=== PATIENT | male | born 1980 | race Caucasian/White ===

== ENCOUNTER → 2017-01-07 | Outpatient (CLI) | payer BC ==
[2016-03-20 16:31] VITALS: BP 151/95
[~2017-01-07] MED LIST: AUGMENTIN 875-1 EAC1 PO; KLONOPIN 1MG1 MG PO; NORCO 325 MG-51 TA1 PO; NORCO 325 MG-51 TAB PO; PANTOPRAZOLE SO20 MG PO; PROZAC10 M2 PO
== END ==
LOC: RAD 16:07
DX: R59.0 Localized enlarged lymph nodes (principal)

== ENCOUNTER → 2017-03-25 | Outpatient (CLI) | payer BC ==
[~2017-03-25] VITALS: Ht 195.6 cm; Wt 95.5 kg
[2017-03-25 12:34] VITALS: BP 146/95
[2017-03-25 14:25] VITALS: BP 129/67
[2017-03-25 17:53] VITALS: BP 135/85
== END ==
LOC: AMSURD 12:08
DX: R19.7 Diarrhea, unspecified (principal); R53.81 Other malaise
CPT/HCPCS: J7120

== ENCOUNTER → 2017-03-26 | Outpatient (CLI) | payer SELFPAY ==
[2017-03-25 17:53] VITALS: BP 135/85
== END ==
LOC: LAB 09:02
DX: R19.7 Diarrhea, unspecified (principal); R53.81 Other malaise

== ENCOUNTER → 2017-07-16 | Outpatient (CLI) | payer SELFPAY ==
[2017-03-25 17:53] VITALS: BP 135/85
[2017-07-16 08:51] LABS: STREP SCREEN NEGATIVE (NEGATIVE)
== END ==
LOC: LAB 08:16 → RAD 08:16
PROVIDERS: Nurse Practitioner Family
DX: J02.8 Acute pharyngitis due to other specified organisms (principal); R68.89 Other general symptoms and signs

== ENCOUNTER → 2017-07-24 | Outpatient (CLI) | payer SELFPAY ==
[2017-03-25 17:53] VITALS: BP 135/85
== END ==
LOC: LAB 16:46
DX: A60.00 Herpesviral infection of urogenital system, unspecified (principal)

== ENCOUNTER 2018-02-22 11:04 | Emergency (ER) | payer BC ==
[~2018-02-22] VITALS: Ht 195.6 cm; Wt 104.5 kg
[2018-02-22] MEDS ORDERED: NORCO 325 MG-51 TA1 PO (11:52)
[2018-02-22 12:08] VITALS: BP 140/99
== END 2018-02-22 12:02 | disposition home or self-care (01) ==
LOC: ED 11:04
DX: M54.16 Radiculopathy, lumbar region (principal); F17.200 Nicotine dependence, unspecified, uncomplicated; Z79.899 Other long term (current) drug therapy
CPT/HCPCS: J1100; J1885

== ENCOUNTER → 2018-04-16 | Outpatient (CLI) | payer BC ==
[~2018-04-16] MED LIST changes: +LEVOFLOXACIN500 M1 PO; +NAPROSYN500 M1 PO
[2018-04-16 09:05] LABS: URINE APPEARANCE CLEAR; URINE BILIRUBIN NEGATIVE (NEGATIVE); URINE BLOOD NEGATIVE (NEGATIVE); URINE COLOR YELLOW; URINE GLUCOSE NEGATIVE (NEGATIVE); URINE KETONE NEGATIVE (NEGATIVE); URINE LEUKOCYTE ESTERASE NEGATIVE (NEGATIVE); URINE NITRATE NEGATIVE (NEGATIVE); URINE PROTEIN(semi-quant) TRACE mg/dL (NEGATIVE); URINE UROBILINOGEN NORMAL (NORMAL); URINE WBC 0-1 /hpf (0-3)
== END ==
LOC: LAB 07:57
PROVIDERS: Internal Medicine
DX: N30.00 Acute cystitis without hematuria (principal)

== ENCOUNTER 2018-04-22 09:47 | Emergency (ER) | payer BC ==
[~2018-04-22] VITALS: Ht 195.6 cm; Wt 108.2 kg
[~2018-04-22 09:47] MED LIST changes: -LEVOFLOXACIN500 M1 PO; -NAPROSYN500 M1 PO
[2018-04-22 10:40] LABS: EOS # 0.2 (0.04-0.40); EOS % 2.9 % (0.0-4.0); HEMATOCRIT 44.6 % (42.0-52.0); HEMOGLOBIN 15.6 g/dL (13.5-18.0); MEAN CELL VOLUME 88 fl (78-100); MEAN CORPUSCULAR HEMOGLOBIN 31 pg (27-31); MEAN CORPUSCULAR HGB CONC 35 g/dL (33-37); MEAN PLATELET VOLUME 9.5 fl (7.4-10.4); MONO # 0.6 (0.20-0.80); NEU # 3.8 (1.40-6.50); PLATELET COUNT 227 K/mm3 (130-400); RED CELL DISTRIBUTION WIDTH 12.8 % (11.5-14.5); WHITE BLOOD COUNT 6.6 K/mm3 (4.8-10.8)
[2018-04-22 10:57] LABS: ALBUMIN 4.4 g/dL (3.5-5.0); CALCIUM 9.6 mg/dL (8.4-10.2); POTASSIUM 4.8 mmol/L (3.6-5.0); TOTAL BILIRUBIN 0.6 mg/dL (0.2-1.3); TOTAL PROTEIN 7.5 g/dL (6.3-8.2)
[2018-04-22 11:38] LABS: D-DIMER 0.14 mg/L FEU (0.15-0.50)
[2018-04-22] MEDS ORDERED: NAPROSYN500 M1 PO (12:29)
[2018-04-22 12:48] VITALS: BP 115/63
== END 2018-04-22 12:30 | disposition home or self-care (01) ==
LOC: ED 09:47
PROVIDERS: Nurse Practitioner Primary Care
DX: I31.9 Disease of pericardium, unspecified (principal); R07.89 Other chest pain; Z79.899 Other long term (current) drug therapy; K21.9 Gastro-esophageal reflux disease without esophagitis; Z82.49 Family history of ischemic heart disease and other diseases of the circulatory system

== ENCOUNTER → 2018-05-18 | Outpatient (CLI) | payer BC ==
[~2018-05-18] VITALS: Ht 195.6 cm; Wt 108.2 kg
[~2018-05-18] MED LIST changes: +LEVOFLOXACIN500 M1 PO; +NAPROSYN500 M1 PO
[2018-05-18 14:57] LABS: EOS # 0.2 (0.04-0.40); HEMATOCRIT 46.9 % (42.0-52.0); HEMOGLOBIN 16.1 g/dL (13.5-18.0); LYMPH# 2.1 (1.50-4.00); MEAN CELL VOLUME 88 fl (78-100); MEAN CORPUSCULAR HEMOGLOBIN 30 pg (27-31); MEAN CORPUSCULAR HGB CONC 34 g/dL (33-37); MEAN PLATELET VOLUME 9.5 fl (7.4-10.4); MONO # 0.6 (0.20-0.80); PLATELET COUNT 244 K/mm3 (130-400); RED BLOOD COUNT 5.31 M/mm3 (4.20-5.60); RED CELL DISTRIBUTION WIDTH 12.6 % (11.5-14.5); WHITE BLOOD COUNT 7.9 K/mm3 (4.8-10.8)
[2018-05-18 15:21] VITALS: BP 120/85
[2018-05-18 15:27] LABS: ALBUMIN 4.5 g/dL (3.5-5.0); CALCIUM 10.1 mg/dL (8.4-10.2); POTASSIUM 4.5 mmol/L (3.6-5.0); TOTAL BILIRUBIN 0.6 mg/dL (0.2-1.3); TOTAL PROTEIN 7.7 g/dL (6.3-8.2)
--- NOTE | 2018-05-18 15:30 | NUR ---
Patient ok to d/c home per Dr. Xie.
[2018-05-18 16:20] LABS: URINE APPEARANCE CLEAR; URINE COLOR YELLOW
[2018-05-18 16:21] LABS: URINE BILIRUBIN NEGATIVE (NEGATIVE); URINE BLOOD NEGATIVE (NEGATIVE); URINE GLUCOSE NEGATIVE (NEGATIVE); URINE KETONE NEGATIVE (NEGATIVE); URINE LEUKOCYTE ESTERASE NEGATIVE (NEGATIVE); URINE NITRATE NEGATIVE (NEGATIVE); URINE PROTEIN(semi-quant) NEGATIVE (NEGATIVE); URINE UROBILINOGEN NORMAL (NORMAL); URINE WBC 0-1 /hpf (0-3)
== END ==
LOC: AMSURD 14:30
PROVIDERS: Internal Medicine
DX: R07.89 Other chest pain (principal)

== ENCOUNTER → 2018-05-29 | Outpatient (CLI) | payer BC ==
[2018-05-18 15:21] VITALS: BP 120/85
== END ==
LOC: RAD 09:34
DX: N20.0 Calculus of kidney (principal)
CPT/HCPCS: Q9967

== ENCOUNTER 2019-08-09 05:20 | Emergency (ER) | payer BC ==
[~2019-08-09] VITALS: Ht 195.6 cm; Wt 95.5 kg
[~2019-08-09 05:20] MED LIST changes: -PANTOPRAZOLE SO20 MG PO; +PROTONIX20 M1 PO
[2019-08-09] MEDS ORDERED: FISH OIL CONCEN1 SG2 PO (05:32)
[2019-08-09 06:32] LABS: HEMATOCRIT 42.6 % (42.0-52.0); HEMOGLOBIN 14.4 g/dL (13.5-18.0); MEAN CELL VOLUME 89 fl (78-100); MEAN CORPUSCULAR HEMOGLOBIN 30 pg (27-31); MEAN CORPUSCULAR HGB CONC 34 g/dL (33-37); MEAN PLATELET VOLUME 9.6 fl (7.4-10.4); PLATELET COUNT 195 K/mm3 (130-400); RED BLOOD COUNT 4.81 M/mm3 (4.20-5.60); RED CELL DISTRIBUTION WIDTH 12.7 % (11.5-14.5); WHITE BLOOD COUNT 4.4 K/mm3 (4.8-10.8)
[2019-08-09 06:48] LABS: LYMPHOCYTE 5 % (20-51); MONOCYTE 10 % (3-10); NEUTROPHILS 84 % (42-75)
[2019-08-09] MEDS ORDERED: GUAIFEN-CODEINE5 ML PO (07:09)
[2019-08-09 07:25] VITALS: BP 145/83
== END 2019-08-09 07:25 | disposition home or self-care (01) ==
LOC: ED 05:20
PROVIDERS: Family Medicine
DX: J06.9 Acute upper respiratory infection, unspecified (principal); K21.9 Gastro-esophageal reflux disease without esophagitis; F17.210 Nicotine dependence, cigarettes, uncomplicated

== ENCOUNTER → 2019-08-16 | Outpatient (CLI) | payer BC ==
[~2019-08-16] VITALS: Ht 195.6 cm; Wt 95.5 kg
[~2019-08-16] MED LIST changes: +COLACE100 M1 PO; +FISH OIL CONCEN1 SG2 PO; +FLUOXETINE HCL20 MG PO; +GUAIFEN-CODEINE5 ML PO; +PANTOPRAZOLE SO40 MG PO; +PROBIOTIC1 EAC1 PO; +ZITHROMAX500 M2 PO; +ZOFRAN ODT4 MG PO
[2019-08-16 15:32] VITALS: BP 138/81
[2019-08-16 20:00] VITALS: BP 141/78
== END ==
LOC: AMSURD 15:17
DX: J20.9 Acute bronchitis, unspecified (principal); E86.0 Dehydration
CPT/HCPCS: J1956; J2405; J7120

== ENCOUNTER 2019-08-17 11:17 | Inpatient (IN) | payer BC ==
[~2019-08-17] VITALS: Ht 195.6 cm; Wt 89.3 kg
[~2019-08-17 11:17] MED LIST changes: -PROBIOTIC1 EAC1 PO
[2019-08-17] MEDS ORDERED: PROBIOTIC1 EAC1 PO (11:31)
[2019-08-17 12:08] LABS: EOS # 0.1 (0.04-0.40); EOS % 2.3 % (0.0-4.0); HEMATOCRIT 47.2 % (42.0-52.0); HEMOGLOBIN 16.1 g/dL (13.5-18.0); MEAN CELL VOLUME 87 fl (78-100); MEAN CORPUSCULAR HEMOGLOBIN 30 pg (27-31); MEAN CORPUSCULAR HGB CONC 34 g/dL (33-37); MEAN PLATELET VOLUME 9.4 fl (7.4-10.4); MONO # 0.5 (0.20-0.80); NEU # 2.7 (1.40-6.50); PLATELET COUNT 274 K/mm3 (130-400); RED BLOOD COUNT 5.42 M/mm3 (4.20-5.60); RED CELL DISTRIBUTION WIDTH 12.3 % (11.5-14.5); WHITE BLOOD COUNT 5.3 K/mm3 (4.8-10.8)
[2019-08-17 12:19] LABS: ALBUMIN 4.8 g/dL (3.5-5.0); POTASSIUM 4.4 mmol/L (3.5-5.1)
[2019-08-17 12:20] LABS: CALCIUM 10.2 mg/dL (8.3-10.5)
[2019-08-17 12:22] LABS: TOTAL PROTEIN 7.9 g/dL (6.4-8.3)
[2019-08-17 12:23] LABS: TOTAL BILIRUBIN 0.8 mg/dL (0.2-1.2)
[2019-08-17 17:50] VITALS: BP 145/86
[2019-08-17 18:18] LABS: URINE APPEARANCE CLEAR; URINE BILIRUBIN NEGATIVE (NEGATIVE); URINE BLOOD NEGATIVE (NEGATIVE); URINE COLOR YELLOW; URINE GLUCOSE NEGATIVE (NEGATIVE); URINE KETONE 1+ (NEGATIVE); URINE LEUKOCYTE ESTERASE NEGATIVE (NEGATIVE); URINE NITRATE NEGATIVE (NEGATIVE); URINE PROTEIN(semi-quant) TRACE mg/dL (NEGATIVE); URINE UROBILINOGEN NORMAL (NORMAL)
[2019-08-17 18:19] LABS: URINE MUCUS PRESENT (NOT PRESENT)
[2019-08-17 18:30] VITALS: BP 123/76
[2019-08-17 21:55] VITALS: BP 147/82
[2019-08-18 01:58] VITALS: BP 143/83
[2019-08-18 05:54] VITALS: BP 144/79
[2019-08-18 10:26] VITALS: BP 129/79
[2019-08-18] MEDS ORDERED: ZITHROMAX500 M2 PO (13:53)
[2019-08-18 15:20] VITALS: BP 134/80
== END 2019-08-18 15:54 | disposition home or self-care (01) | DRG 203 ==
LOC: ED 11:17 → MED/SURG 12:46
PROVIDERS: ADMIT Nurse Practitioner Primary Care
DX: J40 Bronchitis, not specified as acute or chronic (principal); F41.9 Anxiety disorder, unspecified; F32.9 Major depressive disorder, single episode, unspecified; K21.9 Gastro-esophageal reflux disease without esophagitis; E86.0 Dehydration; R19.7 Diarrhea, unspecified; R74.0 Nonspecific elevation of levels of transaminase and lactic acid dehydrogenase [LDH]; Z79.2 Long term (current) use of antibiotics; Z88.9 Allergy status to unspecified drugs, medicaments and biological substances
CPT/HCPCS: A4216; C9113; J0696; J1650; J1885; J7030

== ENCOUNTER → 2019-08-23 | Outpatient (CLI) | payer BC ==
[~2019-08-23] VITALS: Ht 195.6 cm; Wt 89.3 kg
[~2019-08-23] MED LIST changes: +PROBIOTIC1 EAC1 PO
[2019-08-23 11:13] LABS: POTASSIUM 4.6 mmol/L (3.5-5.1)
[2019-08-23 12:26] VITALS: BP 147/97
[2019-08-23 12:36] VITALS: BP 142/86
== END ==
LOC: AMSURD 10:32
PROVIDERS: Family Medicine
DX: R19.7 Diarrhea, unspecified (principal)
CPT/HCPCS: J7030

== ENCOUNTER → 2019-09-02 | Outpatient (CLI) | payer BC ==
[2019-08-23 12:36] VITALS: BP 142/86
[2019-09-02 14:23] LABS: EOS # 0.2 (0.04-0.40); EOS % 4.6 % (0.0-4.0); HEMATOCRIT 45.2 % (42.0-52.0); HEMOGLOBIN 15.3 g/dL (13.5-18.0); LYMPH# 2.2 (1.50-4.00); MEAN CELL VOLUME 89 fl (78-100); MEAN CORPUSCULAR HEMOGLOBIN 30 pg (27-31); MEAN CORPUSCULAR HGB CONC 34 g/dL (33-37); MEAN PLATELET VOLUME 9.4 fl (7.4-10.4); MONO # 0.4 (0.20-0.80); NEU # 2.1 (1.40-6.50); PLATELET COUNT 241 K/mm3 (130-400); RED BLOOD COUNT 5.06 M/mm3 (4.20-5.60); RED CELL DISTRIBUTION WIDTH 12.7 % (11.5-14.5)
[2019-09-02 14:34] LABS: ALBUMIN 4.5 g/dL (3.5-5.0); POTASSIUM 4.4 mmol/L (3.5-5.1)
[2019-09-02 14:35] LABS: CALCIUM 9.5 mg/dL (8.3-10.5)
[2019-09-02 14:36] LABS: TOTAL PROTEIN 7.8 g/dL (6.4-8.3)
[2019-09-02 14:38] LABS: TOTAL BILIRUBIN 0.4 mg/dL (0.2-1.2)
[2019-09-02 15:34] LABS: ERYTHROCYTE SEDIMENTATION RATE 8 mm/hr (0-15)
== END ==
LOC: LAB 14:01
PROVIDERS: Internal Medicine
DX: R59.0 Localized enlarged lymph nodes (principal)

== ENCOUNTER → 2019-09-07 | Outpatient (CLI) | payer BC ==
[2019-08-23 12:36] VITALS: BP 142/86
== END ==
LOC: LAB 15:16
DX: K62.5 Hemorrhage of anus and rectum (principal); R10.9 Unspecified abdominal pain; R19.7 Diarrhea, unspecified

== ENCOUNTER → 2019-09-16 | Day surgery (SDC) | payer BC ==
[2019-08-23 12:36] VITALS: BP 142/86
== END | disposition home or self-care (01) ==
LOC: MSO 09:11
DX: D12.5 Benign neoplasm of sigmoid colon (principal); K64.8 Other hemorrhoids; Z79.899 Other long term (current) drug therapy; F17.210 Nicotine dependence, cigarettes, uncomplicated; F41.9 Anxiety disorder, unspecified; F32.9 Major depressive disorder, single episode, unspecified; K58.0 Irritable bowel syndrome with diarrhea
CPT/HCPCS: 00811; J2704; J7120

== ENCOUNTER → 2019-12-16 | Outpatient (CLI) | payer BC ==
[2019-08-23 12:36] VITALS: BP 142/86
== END ==
LOC: LAB 12:04
DX: M79.10 Myalgia, unspecified site (principal); R10.9 Unspecified abdominal pain; R11.0 Nausea; R19.7 Diarrhea, unspecified; R25.2 Cramp and spasm; R50.9 Fever, unspecified; R51 Headache; R53.83 Other fatigue; R63.0 Anorexia; Z20.828 Contact with and (suspected) exposure to other viral communicable diseases

== ENCOUNTER → 2019-12-24 | Outpatient (CLI) | payer BC ==
[2019-08-23 12:36] VITALS: BP 142/86
== END ==
LOC: LAB 13:56
DX: R05 Cough (principal); R06.02 Shortness of breath; R53.83 Other fatigue; M79.10 Myalgia, unspecified site; Z20.828 Contact with and (suspected) exposure to other viral communicable diseases

== ENCOUNTER → 2020-03-20 | Outpatient (CLI) | payer BC ==
[2019-08-23 12:36] VITALS: BP 142/86
== END ==
LOC: RAD 13:52
DX: M51.16 Intervertebral disc disorders with radiculopathy, lumbar region (principal)

== ENCOUNTER 2020-04-13 08:00 | Outpatient (RCR) | payer BC ==
[2020-03-28 13:25] VITALS: BP 131/87
[~2020-04-13 08:00] MED LIST changes: +CYMBALTA30 M1 PO
== END 2020-04-13 08:30 | disposition still patient (30) ==
LOC: PT 08:00
DX: M46.1 Sacroiliitis, not elsewhere classified (principal); M54.16 Radiculopathy, lumbar region
CPT/HCPCS: G0283-GP

== ENCOUNTER → 2020-04-28 | Outpatient (CLI) | payer BC ==
[2020-03-28 13:25] VITALS: BP 131/87
[2020-04-28 11:59] LABS: EOS # 0.1 (0.04-0.40); EOS % 1.6 % (0.0-4.0); HEMATOCRIT 49.2 % (42.0-52.0); HEMOGLOBIN 16.8 g/dL (13.5-18.0); LYMPH# 2.3 (1.50-4.00); MEAN CELL VOLUME 88 fl (78-100); MEAN CORPUSCULAR HEMOGLOBIN 30 pg (27-31); MEAN CORPUSCULAR HGB CONC 34 g/dL (33-37); MONO # 0.5 (0.20-0.80); NEU # 3.9 (1.40-6.50); PLATELET COUNT 259 K/mm3 (130-400); RED BLOOD COUNT 5.61 M/mm3 (4.20-5.60); RED CELL DISTRIBUTION WIDTH 13.1 % (11.5-14.5); WHITE BLOOD COUNT 6.8 K/mm3 (4.8-10.8)
[2020-04-28 12:16] LABS: POTASSIUM 4.4 mmol/L (3.5-5.1)
[2020-04-28 12:19] LABS: TOTAL PROTEIN 8.1 g/dL (6.4-8.3)
[2020-04-28 12:20] LABS: TOTAL BILIRUBIN 0.6 mg/dL (0.2-1.2)
[2020-04-28 13:02] LABS: ERYTHROCYTE SEDIMENTATION RATE 6 mm/hr (0-15)
== END ==
LOC: LAB 11:37
PROVIDERS: Internal Medicine
DX: M54.16 Radiculopathy, lumbar region (principal)

== ENCOUNTER → 2020-07-25 | Outpatient (CLI) | payer BC ==
[2020-03-28 13:25] VITALS: BP 131/87
[2020-07-25 08:56] LABS: HEMATOCRIT 47.6 % (42.0-52.0); HEMOGLOBIN 15.7 g/dL (13.5-18.0); MEAN CELL VOLUME 91 fl (78-100); MEAN CORPUSCULAR HEMOGLOBIN 30 pg (27-31); MEAN CORPUSCULAR HGB CONC 33 g/dL (33-37); MEAN PLATELET VOLUME 9.1 fl (7.4-10.4); PLATELET COUNT 293 K/mm3 (130-400); RED BLOOD COUNT 5.22 M/mm3 (4.20-5.60); RED CELL DISTRIBUTION WIDTH 12.7 % (11.5-14.5); WHITE BLOOD COUNT 7.4 K/mm3 (4.8-10.8)
[2020-07-25 09:07] LABS: ALBUMIN 4.9 g/dL (3.5-5.0)
[2020-07-25 09:09] LABS: CALCIUM 10.1 mg/dL (8.3-10.5)
[2020-07-25 09:10] LABS: TOTAL PROTEIN 8.2 g/dL (6.4-8.3)
[2020-07-25 09:12] LABS: TOTAL BILIRUBIN 0.3 mg/dL (0.2-1.2)
[2020-07-25 10:49] LABS: ERYTHROCYTE SEDIMENTATION RATE 8 mm/hr (0-15)
== END ==
LOC: LAB 08:43
PROVIDERS: Internal Medicine
DX: M51.16 Intervertebral disc disorders with radiculopathy, lumbar region (principal)

== ENCOUNTER 2020-08-21 09:58 | Outpatient (RCR) | payer BC ==
[2020-03-28 13:25] VITALS: BP 131/87
== END 2020-11-19 | disposition home or self-care (01) ==
LOC: PT
DX: M51.16 Intervertebral disc disorders with radiculopathy, lumbar region (principal)

== ENCOUNTER → 2020-12-04 | Outpatient (CLI) | payer SELFPAY ==
[2020-03-28 13:25] VITALS: BP 131/87
== END ==
LOC: LAB 11:31
DX: R52 Pain, unspecified (principal); Z20.822 Contact with and (suspected) exposure to COVID-19

== ENCOUNTER → 2020-12-15 | Outpatient (CLI) | payer SELFPAY ==
[2020-03-28 13:25] VITALS: BP 131/87
[2020-12-15 11:20] LABS: BASO # 0.03 (0.02-0.10); EOS # 0.33 (0.04-0.40); EOS % 4.7 % (0.0-4.0); HEMATOCRIT 44.7 % (42.0-52.0); HEMOGLOBIN 15.3 g/dL (13.5-18.0); LYMPH# 2.36 (1.50-4.00); MEAN CELL VOLUME 89 fl (78-100); MEAN CORPUSCULAR HEMOGLOBIN 31 pg (27-31); MEAN CORPUSCULAR HGB CONC 34 g/dL (33-37); MONO # 0.47 (0.20-0.80); NEU # 3.83 (1.40-6.50); PLATELET COUNT 277 K/mm3 (130-400); RED CELL DISTRIBUTION WIDTH 12.6 % (11.5-14.5)
[2020-12-15 11:31] LABS: ALBUMIN 4.8 g/dL (3.5-5.0); POTASSIUM 4.9 mmol/L (3.5-5.1)
[2020-12-15 11:32] LABS: CALCIUM 9.9 mg/dL (8.3-10.5)
[2020-12-15 11:34] LABS: TOTAL PROTEIN 7.8 g/dL (6.4-8.3)
[2020-12-15 11:35] LABS: TOTAL BILIRUBIN 0.4 mg/dL (0.2-1.2)
[2020-12-15 12:24] LABS: ERYTHROCYTE SEDIMENTATION RATE 14 mm/hr (0-15)
== END ==
LOC: LAB 10:59
PROVIDERS: Internal Medicine
DX: A87.9 Viral meningitis, unspecified (principal)

== ENCOUNTER → 2020-12-21 | Outpatient (CLI) | payer SELFPAY ==
[2020-03-28 13:25] VITALS: BP 131/87
[2020-12-21 13:27] LABS: BASO # 0.03 (0.02-0.10); EOS # 0.41 (0.04-0.40); EOS % 5.2 % (0.0-4.0); HEMATOCRIT 43.9 % (42.0-52.0); HEMOGLOBIN 14.8 g/dL (13.5-18.0); LYMPH# 2.27 (1.50-4.00); MEAN CELL VOLUME 89 fl (78-100); MEAN CORPUSCULAR HEMOGLOBIN 30 pg (27-31); MEAN CORPUSCULAR HGB CONC 34 g/dL (33-37); NEU # 4.64 (1.40-6.50); PLATELET COUNT 279 K/mm3 (130-400); RED BLOOD COUNT 4.91 M/mm3 (4.20-5.60); RED CELL DISTRIBUTION WIDTH 12.6 % (11.5-14.5)
[2020-12-21 13:43] LABS: ALBUMIN 4.7 g/dL (3.5-5.0)
[2020-12-21 13:44] LABS: POTASSIUM 4.7 mmol/L (3.5-5.1)
[2020-12-21 13:45] LABS: CALCIUM 9.6 mg/dL (8.3-10.5)
[2020-12-21 13:48] LABS: TOTAL BILIRUBIN 0.2 mg/dL (0.2-1.2)
[2020-12-21 14:42] LABS: ERYTHROCYTE SEDIMENTATION RATE 16 mm/hr (0-15)
== END ==
LOC: LAB 13:06
PROVIDERS: Internal Medicine
DX: G03.9 Meningitis, unspecified (principal)

== ENCOUNTER → 2021-03-14 | Outpatient (CLI) | payer OTHER | LOC: LAB 16:33 | DX: Z20.822 Contact with and (suspected) exposure to COVID-19 (principal) ==

== ENCOUNTER → 2021-05-25 | Outpatient (CLI) | payer OTHER | LOC: AMSURD 13:18 | DX: R10.13 Epigastric pain (principal) ==

== ENCOUNTER → 2021-07-17 | Outpatient (CLI) | payer OTHER | LOC: LAB 17:32 | DX: Z20.822 Contact with and (suspected) exposure to COVID-19 (principal) ==

== ENCOUNTER 2021-07-30 11:13 | Emergency (ER) | payer OTHER ==
[~2021-07-30] VITALS: Ht 182.9 cm; Wt 81.7 kg
[2021-07-30] MEDS ORDERED: FLUOXETINE HCL10 MG PO (12:14)
[2021-07-30] MEDS ORDERED: ZOFRAN ODT4 MG PO (12:15)
[2021-07-30 12:41] VITALS: BP 152/96
== END 2021-07-30 12:42 | disposition home or self-care (01) ==
LOC: ED 11:13
DX: R03.0 Elevated blood-pressure reading, without diagnosis of hypertension (principal); F41.9 Anxiety disorder, unspecified; F32.A Depression, unspecified; Z79.899 Other long term (current) drug therapy

== ENCOUNTER → 2021-08-03 | Outpatient (CLI) | payer OTHER ==
[~2021-08-03] MED LIST changes: +FLUOXETINE HCL10 MG PO
[2021-08-03 15:03] LABS: BASO # 0.04 K/mm3 (0.02-0.10); EOS # 0.37 K/mm3 (0.04-0.40); EOS % 4.7 % (0.0-4.0); HEMATOCRIT 47.2 % (42.0-52.0); HEMOGLOBIN 15.9 g/dL (13.5-18.0); LYMPH# 2.37 K/mm3 (1.50-4.00); MEAN CELL VOLUME 89 fl (78-100); MEAN CORPUSCULAR HEMOGLOBIN 30 pg (27-31); MEAN CORPUSCULAR HGB CONC 34 g/dL (33-37); MEAN PLATELET VOLUME 8.8 fl (7.4-10.4); MONO # 0.51 K/mm3 (0.20-0.80); NEU # 4.49 K/mm3 (1.40-6.50); PLATELET COUNT 251 K/mm3 (130-400); RED BLOOD COUNT 5.32 M/mm3 (4.20-5.60); RED CELL DISTRIBUTION WIDTH 11.9 % (11.5-14.5); WHITE BLOOD COUNT 7.8 K/mm3 (4.8-10.8)
[2021-08-03 15:12] LABS: ALBUMIN 4.6 g/dL (3.5-5.0)
[2021-08-03 15:13] LABS: POTASSIUM 4.2 mmol/L (3.5-5.1); URINE APPEARANCE CLEAR; URINE BILIRUBIN NEGATIVE (NEGATIVE); URINE BLOOD NEGATIVE (NEGATIVE); URINE COLOR YELLOW; URINE GLUCOSE NEGATIVE (NEGATIVE); URINE KETONE NEGATIVE (NEGATIVE); URINE LEUKOCYTE ESTERASE NEGATIVE (NEGATIVE); URINE MUCUS PRESENT (NOT PRESENT); URINE NITRATE NEGATIVE (NEGATIVE); URINE PROTEIN(semi-quant) NEGATIVE (NEGATIVE); URINE UROBILINOGEN NORMAL (NORMAL); URINE WBC 0-1 /hpf (0-3)
[2021-08-03 15:14] LABS: CALCIUM 9.8 mg/dL (8.3-10.5)
[2021-08-03 15:17] LABS: TOTAL BILIRUBIN 0.4 mg/dL (0.2-1.2)
== END ==
LOC: LAB 14:50
PROVIDERS: Internal Medicine
DX: I10 Essential (primary) hypertension (principal)

== ENCOUNTER 2021-09-24 14:18 | Emergency (ER) | payer OTHER ==
[~2021-09-24] VITALS: Ht 195.6 cm; Wt 95.3 kg
[2021-09-24] MEDS ORDERED: KLONOPIN 1MG1 MG PO (14:42)
[2021-09-24] MEDS ORDERED: AMLODIPINE BESYL5 MG PO (14:42)
[2021-09-24] MEDS ORDERED: COZAAR100 MG PO (15:00)
[2021-09-24 15:43] VITALS: BP 111/68
== END 2021-09-24 15:44 | disposition home or self-care (01) ==
LOC: ED 14:18
DX: B34.9 Viral infection, unspecified (principal); F17.210 Nicotine dependence, cigarettes, uncomplicated; Z20.822 Contact with and (suspected) exposure to COVID-19

== ENCOUNTER 2022-01-26 12:37 | Emergency (ER) | payer SELFPAY ==
[~2022-01-26] VITALS: Ht 195.6 cm; Wt 95.3 kg
[~2022-01-26 12:37] MED LIST changes: +AMLODIPINE BESYL5 MG PO; +COZAAR100 MG PO
[2022-01-26 14:03] LABS: BASO # 0.02 K/mm3 (0.02-0.10); EOS # 0.17 K/mm3 (0.04-0.40); EOS % 2.8 % (0.0-4.0); HEMATOCRIT 44.3 % (42.0-52.0); HEMOGLOBIN 15.1 g/dL (13.5-18.0); LYMPH# 2.14 K/mm3 (1.50-4.00); MEAN CELL VOLUME 90 fl (78-100); MEAN CORPUSCULAR HEMOGLOBIN 31 pg (27-31); MEAN CORPUSCULAR HGB CONC 34 g/dL (33-37); MEAN PLATELET VOLUME 9.3 fl (7.4-10.4); MONO # 0.45 K/mm3 (0.20-0.80); NEU # 3.39 K/mm3 (1.40-6.50); PLATELET COUNT 242 K/mm3 (130-400); RED BLOOD COUNT 4.95 M/mm3 (4.20-5.60); RED CELL DISTRIBUTION WIDTH 12.3 % (11.5-14.5); WHITE BLOOD COUNT 6.2 K/mm3 (4.8-10.8)
[2022-01-26 14:03] LABS: URINE WBC 0 /hpf (0-3)
[2022-01-26 14:13] LABS: PH-URINE 5.5 (5.0 - 8.0); URINE APPEARANCE CLEAR; URINE BILIRUBIN NEGATIVE (NEGATIVE); URINE BLOOD NEGATIVE (NEGATIVE); URINE COLOR YELLOW; URINE GLUCOSE NEGATIVE (NEGATIVE); URINE KETONE NEGATIVE (NEGATIVE); URINE LEUKOCYTE ESTERASE NEGATIVE (NEGATIVE); URINE NITRATE NEGATIVE (NEGATIVE); URINE PROTEIN(semi-quant) NEGATIVE (NEGATIVE); URINE UROBILINOGEN NORMAL (NORMAL)
[2022-01-26 14:17] LABS: POTASSIUM 4.4 mmol/L (3.5-5.1)
[2022-01-26 14:18] LABS: CALCIUM 9.8 mg/dL (8.3-10.5)
[2022-01-26 15:00] VITALS: BP 124/72
== END 2022-01-26 15:00 | disposition home or self-care (01) ==
LOC: ED 12:37
PROVIDERS: Family Medicine
DX: M54.50 Low back pain, unspecified (principal); R51.9 Headache, unspecified

== ENCOUNTER 2022-03-18 08:45 | Emergency (ER) | payer SELFPAY ==
[2022-03-18 08:50] VITALS: BP 124/86
[2022-03-18] MEDS ORDERED: ZOFRAN ODT4 MG PO (09:38)
[2022-03-18] MEDS ORDERED: PHENERGAN 25 TA25 MG PO (09:38)
[2022-03-18] MEDS ORDERED: PAXLOVID CO-PA1 EACH PO (09:43)
== END 2022-03-18 11:00 | disposition home or self-care (01) ==
LOC: ED 08:45
DX: U07.1 COVID-19 (principal); F17.200 Nicotine dependence, unspecified, uncomplicated

== ENCOUNTER 2022-08-13 15:49 | Emergency (ER) | payer BC ==
[~2022-08-13] VITALS: Ht 195.6 cm; Wt 90.7 kg
[~2022-08-13 15:49] MED LIST changes: +PAXLOVID CO-PA1 EACH PO; +PHENERGAN 25 TA25 MG PO
[2022-08-13 17:12] LABS: BASO # 0.02 K/mm3 (0.02-0.10); EOS # 0.19 K/mm3 (0.04-0.40); EOS % 2.1 % (0.0-4.0); HEMATOCRIT 46.1 % (42.0-52.0); HEMOGLOBIN 15.7 g/dL (13.5-18.0); LYMPH# 2.25 K/mm3 (1.50-4.00); MEAN CELL VOLUME 89 fl (78-100); MEAN CORPUSCULAR HEMOGLOBIN 30 pg (27-31); MEAN CORPUSCULAR HGB CONC 34 g/dL (33-37); MEAN PLATELET VOLUME 8.9 fl (7.4-10.4); MONO # 0.52 K/mm3 (0.20-0.80); NEU # 6.01 K/mm3 (1.40-6.50); PLATELET COUNT 296 K/mm3 (130-400); RED BLOOD COUNT 5.21 M/mm3 (4.20-5.60)
[2022-08-13 17:25] LABS: ALBUMIN 4.6 g/dL (3.5-5.0)
[2022-08-13 17:26] LABS: CALCIUM 10.1 mg/dL (8.3-10.5)
[2022-08-13 17:28] LABS: TOTAL PROTEIN 7.9 g/dL (6.4-8.3)
[2022-08-13 17:29] LABS: TOTAL BILIRUBIN 0.4 mg/dL (0.2-1.2)
[2022-08-13] MEDS ORDERED: ZOFRAN ODT4 MG PO (18:16)
[2022-08-13 19:08] VITALS: BP 130/84
== END 2022-08-13 19:10 | disposition home or self-care (01) ==
LOC: ED 15:49
PROVIDERS: Physician Assistant
DX: K52.9 Noninfective gastroenteritis and colitis, unspecified (principal); Z90.49 Acquired absence of other specified parts of digestive tract; Z28.310 Unvaccinated for COVID-19
CPT/HCPCS: J2405; J7030